=== PATIENT | male | born 1960 | race Caucasian/White ===

== ENCOUNTER → 2017-09-11 | Outpatient (CLI) | payer OTHER ==
[~2017-09-11] MED LIST: GLC500 PO; METO25TA3 PO; MXRAIN INH; NAPROXEN; OMEP20CA9 PO; SIMV10TA5 OR; VGR50 PO
== END | disposition home or self-care (01) ==
LOC: C.LABSPEC 16:35
PROVIDERS: ATTEND Dentist Oral and Maxillofacial Pathology
DX: L02.01 Cutaneous abscess of face (principal)